=== PATIENT | female | born 1935 | race Caucasian/White ===

== ENCOUNTER → 2017-01-02 | Day surgery (SDC) | payer MEDICARE, OTHER ==
[~2017-01-02] MED LIST: 0.9 % SODIUM CHLORIDE 10 ML VIAL ONE; BUPIVACAINE MPF 0.5% 30 ML VIAL. ONE; IOHEXOL 300 MG/ML 50 ML VIAL. ONE; IV RINGERS SOLUTION,LACTATED 1,000 ML IV ONE; LABETALOL 100 MG/20 ML VIAL. IV ONE; LIDOCAINE 1% PF 30 ML VIAL. ONE; LIDOCAINE 2% PF Vial for OR 5 ML VIAL. ONE; MIDAZOLAM HCL PF 2 MG/2 ML VIAL. ONE; PROPOFOL 20 ML IV ONE
[2017-01-02 15:17] LABS: CLARITY,URINE HAZY; COLOR,URINE YELLOW
[2017-01-02 15:18] LABS: BACTERIA,URINE 0 /HPF (0-FEW); BILIRUBIN,URINE NEG (NEG); GLUCOSE,URINE NEG (NEG); NITRITE,URINE NEG (NEG); SQUAMOUS EPITHELIAL CELL,UR MANY /LPF; UROBILINOGEN,URINE 1 mg/dL (0.2 mg/dL)
== END | disposition home or self-care (01) ==
LOC: SURG 13:16
PROVIDERS: ATTEND Anesthesiology Pain Medicine
DX: M48.062 Spinal stenosis, lumbar region with neurogenic claudication (principal); M19.90 Unspecified osteoarthritis, unspecified site; K44.9 Diaphragmatic hernia without obstruction or gangrene; E07.9 Disorder of thyroid, unspecified; Z86.73 Personal history of transient ischemic attack (TIA), and cerebral infarction without residual deficits
CPT/HCPCS: 0275T; 81001; 87086; J0690; J2001; J2250; J2704; J3010; J3490; J7120; Q9967

== ENCOUNTER → 2017-06-28 | Outpatient (CLI) | payer MEDICARE ==
[~2017-06-28] MED LIST changes: -0.9 % SODIUM CHLORIDE 10 ML VIAL ONE; +ACET325T9 PO; +AMLO10TA2 PO; +ASPI81TA50 PO; -BUPIVACAINE MPF 0.5% 30 ML VIAL. ONE; +CARV6.25 PO; +CLOP75TA57 PO; +FLUT9.9S NS; +GABA-585 PO; -IOHEXOL 300 MG/ML 50 ML VIAL. ONE; -IV RINGERS SOLUTION,LACTATED 1,000 ML IV ONE; -LABETALOL 100 MG/20 ML VIAL. IV ONE; +LEVO112T4 PO; -LIDOCAINE 1% PF 30 ML VIAL. ONE; -LIDOCAINE 2% PF Vial for OR 5 ML VIAL. ONE; +LOSA1TAB25 PO; -MIDAZOLAM HCL PF 2 MG/2 ML VIAL. ONE; +OMEP20CA9 PO; +PARO20TA99 PO; -PROPOFOL 20 ML IV ONE; +RANI150T6 PO; +TIZA4TAB PO; +TRAM50TA PO; +[UNRECOGNIZED DRUG - OTHER]
[2017-06-28 12:55] LABS: BASO # 0.1 x10^3/uL (0.0-0.2); BASO % 1 % (0-3); EOS # 0.2 x10^3/uL (0.0-0.7); EOS % 4 % (0-3); HEMATOCRIT 37.5 % (36.0-47.0); HEMOGLOBIN 12.9 g/dL (12.0-15.5); LYMPH # 1.1 x10^3/uL (1.0-4.8); LYMPH % 23 % (24-48); MEAN CORPUSCULAR HEMOGLOBIN 31 pg (25-35); MEAN CORPUSCULAR HGB CONC 34 g/dL (31-37); MEAN CORPUSCULAR VOLUME 90 fL (79-100); MONO # 0.6 x10^3/uL (0.0-1.1); MONO % 12 % (0-9); NEUT # 2.7 x10^3uL (1.8-7.7); NEUT % 59 % (31-73); PLATELET COUNT 230 x10^3/uL (140-400); RED BLOOD COUNT 4.19 x10^6/uL (3.50-5.40); RED CELL DISTRIBUTION WIDTH 13.5 % (11.5-14.5); WHITE BLOOD COUNT 4.6 x10^3/uL (4.0-11.0)
[2017-06-28 13:04] LABS: BILIRUBIN,URINE NEG (NEG); CLARITY,URINE HAZY; COLOR,URINE YELLOW; GLUCOSE,URINE NEG (NEG)
[2017-06-28 13:05] LABS: BACTERIA,URINE FEW /HPF (0-FEW); NITRITE,URINE NEG (NEG); SQUAMOUS EPITHELIAL CELL,UR FEW /LPF; UROBILINOGEN,URINE 0.2 mg/dL (0.2 mg/dL)
== END | disposition home or self-care (01) ==
LOC: LAB 11:39
PROVIDERS: ATTEND Anesthesiology Pain Medicine
DX: Z01.818 Encounter for other preprocedural examination (principal); R79.89 Other specified abnormal findings of blood chemistry; Z86.73 Personal history of transient ischemic attack (TIA), and cerebral infarction without residual deficits; Z79.01 Long term (current) use of anticoagulants
CPT/HCPCS: 36415; 81001; 85025; 85610; 85730; 87641

== ENCOUNTER → 2017-07-03 | Day surgery (SDC) | payer MEDICARE ==
[~2017-07-03] MED LIST changes: +ALBUTEROL SULFATE 2.5 MG/3 ML NEBU. NEB PRN; +ATROPINE 0.5 MG/5 ML DISP.SYRIN. IV PRN; +IV RINGERS SOLUTION,LACTATED 1,000 ML BAG. IV ONE; +IV RINGERS SOLUTION,LACTATED 1,000 ML IV SCH; +LABETALOL 100 MG/20 ML VIAL. IV PRN; +MIDAZOLAM HCL PF 2 MG/2 ML VIAL. IV ONE; +MORPHINE SULFATE 2 MG/ML DISP.SYRIN. IV PRN; +NALOXONE 0.4 MG/ML VIAL. IV PRN; +ONDANSETRON PF 4 MG/2 ML VIAL. IV PRN; +PROCHLORPERAZINE 10 MG/2 ML VIAL. IV PRN; +RANI150T21 PO; -RANI150T6 PO; +ceFAZolin 2GM PREMIX 2 GM/50 ML BAG IV ONE; +diphenhydrAMINE 50 MG/ML VIAL IV PRN; +oxyCODONE/APAP 5/325 1 TAB TABLET PO PRN
[2017-07-03 09:42] VITALS: BP 162/84
== END | disposition home or self-care (01) ==
LOC: SURG 09:05
PROVIDERS: ATTEND Anesthesiology Pain Medicine
DX: M54.16 Radiculopathy, lumbar region (principal); Z53.9 Procedure and treatment not carried out, unspecified reason; I10 Essential (primary) hypertension; E89.0 Postprocedural hypothyroidism; Z87.39 Personal history of other diseases of the musculoskeletal system and connective tissue; Z86.73 Personal history of transient ischemic attack (TIA), and cerebral infarction without residual deficits; Z90.710 Acquired absence of both cervix and uterus; Z90.49 Acquired absence of other specified parts of digestive tract; Z98.890 Other specified postprocedural states; Z88.5 Allergy status to narcotic agent
CPT/HCPCS: J0690; J7120

== ENCOUNTER 2017-11-13 16:11 | Observation (INO) | payer MEDICARE ==
[~2017-11-13] VITALS: Ht 152.4 cm; Wt 84.0 kg
[~2017-11-13 16:11] MED LIST changes: +AMLO10TA2 PO; -AMLO10TA6 PO; -BUPIVACAINE MPF 0.5% 30 ML VIAL. INJ ONE; -BUPIVACAINE MPF 0.5% 30 ML VIAL. ONE; -CYCLOBENZAPRINE 10 MG TABLET. PO ONE; -DEXAMETHASONE SOD PHOS 4 MG/ML VIAL IV ONE; -DEXAMETHASONE SOD PHOS 4 MG/ML VIAL ONE; -IOHEXOL 300 MG/ML 50 ML VIAL. ONE; -IV RINGERS SOLUTION,LACTATED 1,000 ML IV SCH; -KETOROLAC 30 MG/ML VIAL. IM ONE; -KETOROLAC 30 MG/ML VIAL. IV ONE; -KETOROLAC 30 MG/ML VIAL. ONE; -LIDOCAINE 1% Multi-Dose 20 ML VIAL. ONE; -LIDOCAINE 1% PF 2 ML VIAL. ID PRN; -LIDOCAINE 1% PF 30 ML VIAL. INJ ONE; -LIDOCAINE 1% PF 30 ML VIAL. ONE; -MIDAZOLAM HCL PF 2 MG/2 ML VIAL. IV ONE; -MIDAZOLAM HCL PF 2 MG/2 ML VIAL. ONE; -ONDANSETRON PF 4 MG/2 ML VIAL. ONE; -PROPOFOL 10,000 MCG/ML (20ML) VIAL IV ONE; -PROPOFOL 20 ML IV ONE; +methylPREDNISolone 4 MG TABLET. PO SCH; -oxyCODONE/APAP 7.5/325 1 TAB TABLET PO ONE
[2017-11-13] MEDS ORDERED: oxyCODONE/APAP 7.5/325 1 TAB TABLET ONE ×2 (16:55→17:00)
[2017-11-13 17:23] VITALS: BP 129/66
[2017-11-13] MEDS ORDERED: ONDANSETRON PF 4 MG/2 ML VIAL. IV PRN (18:00)
[2017-11-13] MEDS ORDERED: methylPREDNISolone 4 MG TABLET. PO ONE (18:00)
[2017-11-13] MEDS: HYDROmorphone PF 1 MG/ML DISP.SYRIN IVP PRN (18:10)
[2017-11-13] MEDS: CARVEDILOL 6.25 MG TABLET PO SCH (20:22)
[2017-11-13] MEDS: GABAPENTIN 100 MG CAPSULE. PO SCH (20:22)
[2017-11-13] MEDS: tiZANidine 4 MG TABLET. PO PRN (20:22)
[2017-11-13] MEDS: PANTOPRAZOLE 40 MG TABLET. PO SCH (20:22)
[2017-11-13] MEDS: FAMOTIDINE 20 MG TABLET PO SCH (20:22)
[2017-11-13] MEDS: ACETAMINOPHEN 325 MG TABLET PO SCH (20:22)
[2017-11-13 22:43] VITALS: BP 112/69
--- NOTE | 2017-11-13 23:41 | HP ---
ADMIT DATE: 11/13/2017 HISTORY OF PRESENT ILLNESS: The patient is an 82-year-old female patient, who apparently has chronic low back pain that has failed multiple pain medications and multiple spinal epidural steroid injection and Dr. Lazaro, the structural steel painter attempted to place a spinal cord stimulator and apparently, the patient developed severe pain in her left groin and then going down to slightly below her left knee that comes in waves. She has had an x-ray of her left hip joint, which showed that there was no evidence of acute fracture or dislocation, mild left hip joint space narrowing with small associated osteophytes. She has had a CT scan of the thoracic and lumbar spine without contrast after she developed back and hip pain status post after the stimulator placement and subsequent removal, and it showed that the thoracic spine images demonstrate no recent fracture. There is extensive marginal spurring with anterior bony bridging at several levels in the lower thoracic spine. There are moderate degenerative changes involving scattered facet joints bilaterally. The posterior disk margins are not clearly seen. No high grade central spinal stenosis is evident. There are gas collections within the posterior aspect of the mid to lower thoracic spinal canal, apparently led to recent spinal stimulator placement and subsequent removal. There is mild atelectasis posteriorly in both lung bases, and moderate-sized hiatal hernia is noted. The lumbar images demonstrate moderate multilevel degenerative changes with spinal stenosis and foraminal narrowing at multiple levels as fully described on the study earlier during the day. No new lumbar abnormalities detected. Because of the continued pain that comes into waves, a decision was made to admit her to [facility] to control the pain and to include Medrol Dosepak as well as Neurontin 100 mg twice a day as per Dr. Lazaro's recommendation. We will obviously repeat her CT scan if necessary if she continued to complain of pain. Ultimately, she may require MRI and a neurosurgical consult if the pain continues to worsen. PAST MEDICAL HISTORY: Significant for left middle cerebral artery territory infarct, right-sided hemiplegia with resolution of her symptoms. Apparently, she has also left carotid stenosis, status post stent deployment, hypertension, type 2 diabetes, hypothyroidism, generalized osteoarthritis, scoliosis and L4-L5 spinal stenosis. She is also known to have senile macular degeneration. She is totally blind in one eye and the vision is poor in the other, she is legally blind. PAST SURGICAL HISTORY: Significant for thyroidectomy, total abdominal hysterectomy, bilateral salpingo-oophorectomy, cholecystectomy, unilateral cataract removal, vaginal mesh placement, multiple spinal epidural steroid injections and colonoscopy. ALLERGIES: She is allergic to CODEINE. MEDICATIONS: She is currently on the following medications: She is on tizanidine 2 mg 1-2 tablets at bedtime. She is on ranitidine 150 mg twice a day. She is on Protonix 20 mg daily, Systane Ultra 1 drop to both eyes as needed, levothyroxine 112 mcg daily, Ocuvite 1 tablet p.o. b.i.d., omeprazole 20 mg daily, Coreg 6.25 mg twice a day, Tylenol 650 mg 3 times a day. She was on aspirin 81 mg once a day, Flonase 2 sprays to each nostril once a day, Plavix 75 mg daily, amlodipine 10 mg daily, losartan 100 mg daily, vitamin D 50,000 international units twice a week, tramadol 50 mg every 8 hours and estrogen and testosterone suppositories every other night. FAMILY HISTORY: She has 1 sister, at the age of 74 because of advanced alcoholic liver disease and alcohol-induced Alzheimer disease. Her father in his 70s of Alzheimer disease. Mother in her 40s, the cause of is unknown. SOCIAL HISTORY: She is and lives with her . She quit smoking 50 years ago. She used to smoke 2 packs a day. Her daughter lives nearby. 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 REVIEW OF SYSTEMS: The patient has senile macular degeneration and she is legally blind. She denied any earache, tinnitus or sensorineural deafness. Denied any nosebleeds, stuffy nose or postnasal drip. Denied any sore throat, sore tongue, toothache, hoarseness of voice or difficulty swallowing. Denied any nausea, vomiting, diarrhea or constipation. Denied any hematemesis, melena or hematochezia. Denied any dysuria, frequency or hematuria. Denied any chest pain, shortness of breath, orthopnea, or paroxysmal nocturnal dyspnea. Denied any cough, phlegm or hemoptysis. Denied any chills, rigors or fever. Her main complaint is new-onset of pain that starts in the left groin extending to the left kneecap and slightly below it. It comes into waves. PHYSICAL EXAMINATION: GENERAL: On examining her, she looked well and was clearly in no apparent respiratory distress. She was pale, but no jaundice, cyanosis, or thyromegaly. No jugular venous distension. No limb edema. VITAL SIGNS: Her heart rate was 76, blood pressure was 129/66, temperature was 98.4, oxygen saturation was 93% on room air and respiratory rate was 20. HEENT: Showed she is normocephalic, atraumatic. NECK: Supple. HEART: Showed normal first and second heart sounds with no gallop, rub or murmur. CHEST: Clear to auscultation. No crepitation or rhonchi. ABDOMEN: Distended, soft, and nontender. No guarding or rigidity. No organomegaly. Hernial orifice intact. Bowel sounds normal. NEUROLOGIC: She was legally blind, but otherwise all other cranial nerves were intact. EXTREMITIES: She moves all extremities without difficulty. She has severe pain that is episodic that starts in her left groin and extends to the left kneecap. LABORATORY DATA: Her lab work done this morning showed a white cell count of 5000, hemoglobin 12, hematocrit 35, MCV 88 and platelet count of 248,000. Her prothrombin time was 10, INR of 1, and a PTT was 24. Urinalysis, she has no chemistry done. Her CT scan of the thoracic and lumbar spine showed that the patient has moderate multilevel hypertrophic degenerative changes in the thoracic spine without evidence of significant thoracic spinal stenosis. MRI scanning may be useful for further evaluation if clinically indicated due to its higher sensitivity, small gas collection in the posterior aspect of the mid to lower thoracic spinal canal due to recent spinal stimulator intervention, moderate multilevel degenerative changes in the lumbar spine as fully described. ASSESSMENT AND PLAN: In summary, this is an 82-year-old female patient with chronic back pain, who has had a trial of a stimulator placement and subsequent removal. She unfortunately developed severe pain that started in her left groin and extends to the left kneecap. She was admitted for pain management. We will start her on hydromorphone 0.5 mg IV every 3 hours as well as Medrol Dosepak and Neurontin 100 mg twice a day. We will hold her Plavix and aspirin for now. If her pain worsens, she will eventually need an MRI of her lumbar spine and perhaps also a neurosurgical consult. RASHAUN ELIZABETH MD DR: Casimiro JOB#: [id number] / [id number]
[2017-11-14] MEDS: HYDROmorphone PF 1 MG/ML DISP.SYRIN IVP PRN (02:49)
[2017-11-14 05:16] VITALS: BP 127/68
[2017-11-14] MEDS ORDERED: LEVOTHYROXINE 112 MCG TABLET PO SCH (06:00)
[2017-11-14 06:07] LABS: HEMATOCRIT 31.9 % (36.0-47.0); HEMOGLOBIN 10.8 g/dL (12.0-15.5); RED BLOOD COUNT 3.56 x10^6/uL (3.50-5.40); RED CELL DISTRIBUTION WIDTH 13.5 % (11.5-14.5); WHITE BLOOD COUNT 8.5 x10^3/uL (4.0-11.0)
[2017-11-14 06:21] LABS: ALBUMIN 3.3 g/dL (3.4-5.0); CALCIUM 8.3 mg/dL (8.5-10.1); CREATININE 2.2 mg/dL (0.6-1.0); GFR 21.3; POTASSIUM 4.8 mmol/L (3.5-5.1); TOTAL BILIRUBIN 0.5 mg/dL (0.2-1.0); TOTAL PROTEIN 6.6 g/dL (6.4-8.2)
[2017-11-14] MEDS: CARVEDILOL 6.25 MG TABLET PO SCH (08:30)
[2017-11-14] MEDS: FAMOTIDINE 20 MG TABLET PO SCH (08:30)
[2017-11-14] MEDS: methylPREDNISolone 4 MG TABLET. PO SCH ×2 (08:30→13:10)
[2017-11-14] MEDS: PANTOPRAZOLE 40 MG TABLET. PO SCH (08:30)
[2017-11-14] MEDS: ACETAMINOPHEN 325 MG TABLET PO SCH ×2 (08:31→13:09)
[2017-11-14] MEDS: tiZANidine 4 MG TABLET. PO PRN (08:31)
[2017-11-14] MEDS: GABAPENTIN 100 MG CAPSULE. PO SCH (08:35)
[2017-11-14] MEDS ORDERED: oxyCODONE/APAP 5/325 1 TAB TABLET PO PRN ×3 (08:45→09:00)
[2017-11-14] MEDS ORDERED: LOSARTAN 50 MG TABLET. PO SCH (09:00)
[2017-11-14] MEDS ORDERED: PARoxetine 20 MG TABLET PO SCH (09:00)
[2017-11-14] MEDS ORDERED: amLODIPine BESYLATE 10 MG TABLET PO SCH (09:00)
[2017-11-14] MEDS ORDERED: hydroCHLOROthiazide 12.5 MG CAPSULE PO SCH (09:00)
[2017-11-14] MEDS ORDERED: FLUTICASONE 50MCG/NASAL SPRAY 16GM BOTTLE. NS SCH ×2 (09:00→21:00)
[2017-11-14 10:39] VITALS: BP 94/53
[2017-11-14 14:54] VITALS: BP 105/56
[2017-11-14] MEDS ORDERED: methylPREDNISolone 4 MG TABLET. PO SCH (21:00)
[2017-11-15] MEDS ORDERED: methylPREDNISolone 4 MG TABLET. PO SCH (09:00)
[2017-11-16] MEDS ORDERED: methylPREDNISolone 4 MG TABLET. PO SCH (09:00)
[2017-11-17] MEDS ORDERED: methylPREDNISolone 4 MG TABLET. PO SCH (09:00)
[2017-11-18] MEDS ORDERED: methylPREDNISolone 4 MG TABLET. PO SCH (09:00)
== END 2017-11-14 16:35 | disposition home or self-care (01) ==
LOC: 1 SOUTH 16:11
PROVIDERS: ADMIT Internal Medicine; ATTEND Internal Medicine
DX: M54.5 Low back pain (principal); I65.22 Occlusion and stenosis of left carotid artery; I10 Essential (primary) hypertension; E11.9 Type 2 diabetes mellitus without complications; E03.9 Hypothyroidism, unspecified; M19.90 Unspecified osteoarthritis, unspecified site; G89.29 Other chronic pain; Z87.891 Personal history of nicotine dependence; Z79.899 Other long term (current) drug therapy; Z82.0 Family history of epilepsy and other diseases of the nervous system; Z86.73 Personal history of transient ischemic attack (TIA), and cerebral infarction without residual deficits; Z90.710 Acquired absence of both cervix and uterus
CPT/HCPCS: 36415; 80053; 85027; 96374; 96375; 96376; 97162; 97166; G0378; G0379; G8978; G8979; G8987; G8988; J1170; J2405; J7509

== ENCOUNTER → 2017-11-13 | Day surgery (SDC) | payer MEDICARE ==
[~2017-11-13] MED LIST changes: -ALBUTEROL SULFATE 2.5 MG/3 ML NEBU. NEB PRN; -AMLO10TA2 PO; +AMLO10TA6 PO; -ATROPINE 0.5 MG/5 ML DISP.SYRIN. IV PRN; +BUPIVACAINE MPF 0.5% 30 ML VIAL. INJ ONE; +BUPIVACAINE MPF 0.5% 30 ML VIAL. ONE; +CYCLOBENZAPRINE 10 MG TABLET. PO ONE; +DEXAMETHASONE SOD PHOS 4 MG/ML VIAL IV ONE; +DEXAMETHASONE SOD PHOS 4 MG/ML VIAL ONE; +IOHEXOL 300 MG/ML 50 ML VIAL. ONE; -IV RINGERS SOLUTION,LACTATED 1,000 ML BAG. IV ONE; +KETOROLAC 30 MG/ML VIAL. IM ONE; +KETOROLAC 30 MG/ML VIAL. IV ONE; +KETOROLAC 30 MG/ML VIAL. ONE; -LABETALOL 100 MG/20 ML VIAL. IV PRN; +LIDOCAINE 1% Multi-Dose 20 ML VIAL. ONE; +LIDOCAINE 1% PF 2 ML VIAL. ID PRN; +LIDOCAINE 1% PF 30 ML VIAL. INJ ONE; +LIDOCAINE 1% PF 30 ML VIAL. ONE; +MIDAZOLAM HCL PF 2 MG/2 ML VIAL. ONE; -MORPHINE SULFATE 2 MG/ML DISP.SYRIN. IV PRN; -NALOXONE 0.4 MG/ML VIAL. IV PRN; -ONDANSETRON PF 4 MG/2 ML VIAL. IV PRN; +ONDANSETRON PF 4 MG/2 ML VIAL. ONE; -PROCHLORPERAZINE 10 MG/2 ML VIAL. IV PRN; +PROPOFOL 10,000 MCG/ML (20ML) VIAL IV ONE; +PROPOFOL 20 ML IV ONE; -ceFAZolin 2GM PREMIX 2 GM/50 ML BAG IV ONE; -diphenhydrAMINE 50 MG/ML VIAL IV PRN; -oxyCODONE/APAP 5/325 1 TAB TABLET PO PRN; +oxyCODONE/APAP 7.5/325 1 TAB TABLET PO ONE
[2017-11-13 10:41] LABS: BASO # 0.1 x10^3/uL (0.0-0.2); BASO % 1 % (0-3); EOS # 0.3 x10^3/uL (0.0-0.7); EOS % 6 % (0-3); HEMATOCRIT 35.3 % (36.0-47.0); HEMOGLOBIN 12.1 g/dL (12.0-15.5); LYMPH # 1.1 x10^3/uL (1.0-4.8); LYMPH % 22 % (24-48); MEAN CORPUSCULAR HEMOGLOBIN 30 pg (25-35); MEAN CORPUSCULAR HGB CONC 34 g/dL (31-37); MEAN CORPUSCULAR VOLUME 88 fL (79-100); MONO # 0.5 x10^3/uL (0.0-1.1); MONO % 11 % (0-9); NEUT # 3.1 x10^3uL (1.8-7.7); NEUT % 61 % (31-73); PLATELET COUNT 246 x10^3/uL (140-400); RED BLOOD COUNT 4.03 x10^6/uL (3.50-5.40); RED CELL DISTRIBUTION WIDTH 13.7 % (11.5-14.5)
--- NOTE | 2017-11-13 14:14 | RAD ---
EXAM: 2 views left hip DATE: 11/13/2017 1:47 PM INDICATION: BACK AND HIP PAIN, POST STIMULATOR TRIAL PLACEMENT COMPARISON: No Prior FINDINGS/ IMPRESSION: No evidence of acute fracture or dislocation. Mild left hip joint space narrowing with small associated osteophytes. Electronically signed by: Marc Cohen MD (11/13/2017 2:10 PM) [id number]
--- NOTE | 2017-11-13 15:17 | RAD ---
CT of the lumbar spine without contrast, 11/13/2017: HISTORY: Back and hip pain following stimulator placement Noncontrast scans were obtained with multiplanar reconstructions produced. Spinal stimulator leads enter the spinal canal between the lamina at T11-12 just to the left of midline. They extend superiorly in the posterior aspect of the thoracic spinal canal. Their tips are not visible on this study. There is a mild superior endplate deformity at L2. No definite acute fracture line is seen. This is likely old. At L1-2 there is a vacuum disc phenomena with moderate anterior and posterior marginal spurring. There are mild degenerative changes involving the facet joints bilaterally. The combination of findings is causing borderline narrowing of the central spinal canal and mild to moderate right foraminal encroachment. At L2-3 there is a vacuum phenomena with moderate broad-based posterior disc bulging and spurring. There is mild posterior ligamentous thickening related to facet joint arthropathy. There is moderate associated central spinal stenosis and mild inferior foraminal encroachment due to the spurring. At L3-4 there is moderate disc space narrowing with a vacuum disc phenomena and moderate marginal spurring. There are mild degenerative changes involving the facet joints with posterior ligamentous thickening. The combination of findings is causing moderate central spinal stenosis with mild to moderate foraminal narrowing, more so on the left. At L4-5 there is severe disc space narrowing with a vacuum disc phenomena and marginal spurring. There are extensive hypertrophic degenerative changes involving the facet joints bilaterally. There is broad-based posterior disc bulge in conjunction with the spurring. The combination of findings is causing moderate central spinal stenosis as well as moderate bilateral foraminal encroachment. At L5-S1 there is also moderate degenerative disc disease with a vacuum disc phenomena and moderate marginal spurring. There are moderate degenerative changes involving the facet joints. The combination of findings is causing mild central spinal stenosis, mild left foraminal narrowing and moderate right foraminal narrowing. There is moderate calcific plaquing and tortuosity of the abdominal aorta. There is slight dilatation of the infrarenal abdominal aorta. IMPRESSION: 1. Moderate multilevel hypertrophic degenerative change in the lumbar spine with mild to moderate central spinal and foraminal stenosis at multiple levels as described above. 2. Mild superior endplate fracture at L2 which is probably old. 3. Spinal stimulator leads extending into the lower thoracic spinal canal. PQRS Compliance Statement: One or more of the following individualized dose reduction techniques were utilized for this examination: 1. Automated exposure control 2. Adjustment of the mA and/or kV according to patient size 3. Use of iterative reconstruction technique Electronically signed by: Akira Kraus MD (11/13/2017 3:14 PM) [facility]
[2017-11-13 16:40] VITALS: BP 128/71
--- NOTE | 2017-11-13 16:42 | RAD ---
CT of the thoracic or lumbar spine without contrast, 11/13/2017, 4:00 PM: HISTORY: Back and hip pain status post stimulator placement and subsequent removal Noncontrast scans were obtained with multiplanar reconstructions produced. The thoracic spine images demonstrate no recent fracture. There is extensive marginal spurring with anterior bony bridging at several levels in the lower thoracic spine. There are moderate degenerative changes involving scattered facet joints bilaterally. The posterior disc margins are not clearly seen. No high-grade central spinal stenosis is evident. There are gas collections within the posterior aspect of the mid to lower thoracic spinal canal apparently related to the recent spinal stimulator placement and subsequent removal. There is mild atelectasis posteriorly in both lung bases. A moderate sized hiatal hernia is noted. The lumbar images demonstrate moderate multilevel degenerative change with spinal stenosis and foraminal narrowing at multiple levels as fully described on the study of earlier in the day. No new lumbar abnormality is detected. IMPRESSION: 1. Moderate multilevel hypertrophic degenerative change in the thoracic spine without evidence of significant thoracic spinal stenosis. MR scanning may be useful for further evaluation if clinically indicated, due to its higher sensitivity. 2. Small gas collections in the posterior aspect of the mid and lower thoracic spinal canal due to the recent spinal stimulator intervention. 3. Moderate multilevel degenerative change in the lumbar spine, as fully described on the CT study of earlier in the day. PQRS Compliance Statement: One or more of the following individualized dose reduction techniques were utilized for this examination: 1. Automated exposure control 2. Adjustment of the mA and/or kV according to patient size 3. Use of iterative reconstruction technique Electronically signed by: Akira Kraus MD (11/13/2017 4:39 PM) [facility]
== END | disposition home or self-care (01) ==
LOC: SURG 09:58
PROVIDERS: ATTEND Anesthesiology Pain Medicine
DX: M54.16 Radiculopathy, lumbar region (principal); I10 Essential (primary) hypertension; G89.29 Other chronic pain; K21.9 Gastro-esophageal reflux disease without esophagitis; M19.90 Unspecified osteoarthritis, unspecified site; E89.0 Postprocedural hypothyroidism; Z90.710 Acquired absence of both cervix and uterus; Z90.49 Acquired absence of other specified parts of digestive tract; Z88.5 Allergy status to narcotic agent; Z79.01 Long term (current) use of anticoagulants; Z79.899 Other long term (current) drug therapy
CPT/HCPCS: 36415; 63650; 72128; 72131; 73502; 85025; 85610; C1897; J0690; J1100; J1885; J2001; J2250; J2405; J2704; J3010; J3490; J7120; Q9967

== ENCOUNTER → 2018-05-14 | Outpatient (CLI) | payer MEDICARE ==
[~2018-05-14] MED LIST changes: -AMLO10TA2 PO; +AMLO10TA8 PO; +BUPIVACAINE MPF 0.5% 30 ML VIAL. ONE; +IOHEXOL 300 MG/ML 50 ML VIAL. ONE; +LIDOCAINE 1% PF 30 ML VIAL. ONE; -methylPREDNISolone 4 MG TABLET. PO SCH; +methylPREDNISolone ACETATE 80 MG/ML VIAL. ONE
== END | disposition home or self-care (01) ==
LOC: SURG 08:34
PROVIDERS: ATTEND Anesthesiology Pain Medicine
DX: M47.816 Spondylosis without myelopathy or radiculopathy, lumbar region (principal); M48.061 Spinal stenosis, lumbar region without neurogenic claudication; I10 Essential (primary) hypertension; E03.9 Hypothyroidism, unspecified; E78.5 Hyperlipidemia, unspecified; K21.9 Gastro-esophageal reflux disease without esophagitis; I25.10 Atherosclerotic heart disease of native coronary artery without angina pectoris; M19.90 Unspecified osteoarthritis, unspecified site; Z86.73 Personal history of transient ischemic attack (TIA), and cerebral infarction without residual deficits; Z82.49 Family history of ischemic heart disease and other diseases of the circulatory system; Z79.82 Long term (current) use of aspirin; Z79.899 Other long term (current) drug therapy; Z88.5 Allergy status to narcotic agent; Z88.8 Allergy status to other drugs, medicaments and biological substances; Z95.5 Presence of coronary angioplasty implant and graft
CPT/HCPCS: 64493; 64494; J1040; J2001; J3490; Q9967

== ENCOUNTER → 2019-11-18 | Outpatient (CLI) | payer MEDICARE ==
[~2019-11-18] MED LIST changes: -BUPIVACAINE MPF 0.5% 30 ML VIAL. ONE; -IOHEXOL 300 MG/ML 50 ML VIAL. ONE; -LIDOCAINE 1% PF 30 ML VIAL. ONE; +OMEP20CA16 PO; -OMEP20CA9 PO; +RANI-376 PO; -RANI150T21 PO; -TIZA4TAB PO; +TIZA4TAB2 PO; -methylPREDNISolone ACETATE 80 MG/ML VIAL. ONE
--- NOTE | 2019-11-23 11:59 | RAD ---
DATE: 11/18/2019 2:00 PM EXAM: DIGITAL SCREEN BILAT W/CAD HISTORY: Screening COMPARISON: 02/24/2016, 07/19/2017, 09/17/2018 Bilateral full field craniocaudal and mediolateral oblique images were obtained using digital technique. This study was interpreted with the benefit of Computerized Aided Detection (CAD). FINDINGS: Breast Density: HETERO The breast parenchyma Is heterogeneously dense, which could reduce sensitivity of mammography. Breast parenchyma level C No suspicious masses, microcalcifications or architectural distortion is present to suggest malignancy in either breast. The visualized axillae are unremarkable. IMPRESSION: No mammographic evidence of malignancy. BI-RADS CATEGORY: 1 NEGATIVE RECOMMENDED FOLLOW-UP: 12M 12 MONTH FOLLOW-UP Annual screening mammography is recommended, unless clinically indicated sooner based on symptoms or change in physical exam. PQRS compliance statement: Patient information was entered into a reminder system with a target due date for the next mammogram. Mammography is a sensitive method for finding small breast cancers, but it does not detect them all and is not a substitute for careful clinical examination. A negative mammogram does not negate a clinically suspicious finding and should not result in delay in biopsying a clinically suspicious abnormality. "Our facility is accredited by the [employer] Mammography Program."
== END | disposition home or self-care (01) ==
LOC: MAMMO 14:01
PROVIDERS: ATTEND Family Medicine
DX: Z12.31 Encounter for screening mammogram for malignant neoplasm of breast (principal)
CPT/HCPCS: 77067

== ENCOUNTER → 2020-07-01 | Outpatient (CLI) | payer MEDICARE ==
[~2020-07-01] MED LIST changes: +AMLO-187 PO; -AMLO10TA8 PO
--- NOTE | 2020-07-01 17:45 | RAD ---
EXAM: XR FOREARM_LEFT 2 VIEWS, XR HAND_LEFT 3 VIEWS, XR HUMERUS_LT 2 VIEWS 07/01/2020 10:45 AM CLINICAL INDICATION: Fell yesterday, pain COMPARISON: None TECHNIQUE: 2 views of the left humerus, 2 views of the left forearm, 3 views of the left hand FINDINGS: Humerus: No acute fracture. Alignment is normal. There is probable calcific tendinitis along the rota tor cuff. Left forearm: There is a radial neck fracture with slight impaction and angulation. No intra-articula r extension. No other fracture or malalignment. Left hand: No acute fracture or malalignment. There is severe degenerative joint disease of the first CMC joint. Moderate degenerative joint disease of the third MTP joint. Chondrocalcinosis is seen at the wrist. IMPRESSION: 1. Acute left radial neck fracture 2. No acute fracture of the left humerus or hand. Electronically signed by: Jenny Aburto MD (07/01/2020 5:43 PM) [id number]
== END ==
LOC: DXRAD 10:44
PROVIDERS: ATTEND Family Medicine
DX: S52.132A Displaced fracture of neck of left radius, initial encounter for closed fracture (principal); M18.12 Unilateral primary osteoarthritis of first carpometacarpal joint, left hand; M11.232 Other chondrocalcinosis, left wrist; M19.072 Primary osteoarthritis, left ankle and foot; W19.XXXA Unspecified fall, initial encounter; Y93.89 Activity, other specified; Y92.89 Other specified places as the place of occurrence of the external cause; Y99.8 Other external cause status
CPT/HCPCS: 73060; 73090; 73130

== ENCOUNTER → 2020-07-11 | Outpatient (CLI) | payer MEDICARE ==
--- NOTE | 2020-07-11 17:32 | RAD ---
EXAM: Right lower extremity venous Doppler sonogram. HISTORY: Pain and swelling. TECHNIQUE: Flor scale and color Doppler sonographic evaluation of the right lower extremity veins wit h spectral waveform analysis was performed. FINDINGS: There is normal color flow, normal compressibility and there are normal spectral waveforms in the common femoral, superficial femoral, popliteal, posterior tibial and greater saphenous veins. There is a complex fluid collection measuring 5.8 x 3.9 x 1.6 cm within the inferior medial right gómez f. IMPRESSION: 1. No Doppler evidence of lower extremity deep venous thrombosis. 2. 5.8 cm complex fluid collection within the inferior medial right calf. This may be a soft tissue h ematoma. Given reported erythema in this location, the differential also includes an infected fluid c ollection/abscess. Correlate with physical exam findings. Electronically signed by: Marisa Velarde MD (07/11/2020 5:30 PM) [id number]
== END ==
LOC: US 16:49
PROVIDERS: ATTEND Family Medicine
DX: M79.89 Other specified soft tissue disorders (principal)
CPT/HCPCS: 93971

== ENCOUNTER 2020-11-16 13:27 | Emergency (ER) | payer MEDICARE ==
[~2020-11-16] VITALS: Ht 157.5 cm; Wt 77.4 kg
[2020-11-16] MEDS ORDERED: NEOMY/BACITR/POLYMYXIN OINT PACKET. TP ONE (13:45)
[2020-11-16] MEDS ORDERED: LIDOCAINE 2%/EPI 1:100,000 20 ML VIAL. IJ ONE (13:45)
[2020-11-16 13:51] VITALS: BP 124/55
--- NOTE | 2020-11-16 14:11 | RAD ---
XR KNEE 3 VIEWS_RT Clinical indications: Reason: pain s/p fall, laceration Findings: No acute fracture or dislocation or osteolytic process is evident. No right knee joint effusion is seen. There is degenerative chondrocalcinosis of the medial and later al menisci. Mild degenerative spurring of the medial tibial femoral joint compartment is seen. 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 Prepatellar soft tissue swelling and laceration is seen . No radiopaque foreign body is evident here. IMPRESSION: No acute osseous abnormality is evident. Electronically signed by: Robbi Garza MD (11/16/2020 2:09 PM) [id number]
[2020-11-16] MEDS ORDERED: DIPH,PERTUSS(ACELL),TET VAC/PF 0.5 ML SYRINGE. VAX IM ONE (14:15)
--- NOTE | 2020-11-16 14:23 | PHYS DOC ---
Past History Past Surgical History: No Surgical History General Adult EDM: Chief Complaint: LACERATION/AVULSION HPI: HPI: Patient is a [age] year old [sex] who presents with [] Review of Systems: Review of Systems: Constitutional: Denies fever or chills Eyes: Denies redness or eye pain HENT: Denies nasal congestion or sore throat Respiratory: Denies cough or shortness of breath Cardiovascular: Denies chest pain or palpitations GI: Denies abdominal pain, nausea, or vomiting : Denies dysuria or hematuria Musculoskeletal: Denies back pain or joint pain Integument: Denies rash or skin lesions Neurologic: Denies headache, focal weakness or sensory changes Complete systems were reviewed and found to be within normal limits, except as documented in this note. Current Medications: Current Meds: Current Medications Medications (Trade) Dose Ordered Sig/Sandra Start Time Stop Time Status Last Admin Dose Admin Diphtheria/ Pertussis/Tetanus Vacc (ADACEL TDap SYRINGE) 0.5 ml ONCE ONCE 11/16/20 14:15 11/16/20 14:16 DC Lidocaine/ Epinephrine (Xylocaine 2%-Epi 1:100,000) 20 ml 1X ONCE 11/16/20 13:45 11/16/20 13:52 DC Neomycin/ Polymyxin/ Bacitracin (Triple Antibiotic Ointment) 1 pkt 1X ONCE 11/16/20 13:45 11/16/20 13:52 DC Allergies: Allergies: Allergies Coded Allergies Type Severity Reaction Last Updated Verified codeine Allergy Unknown 11/13/17 Yes Physical Exam: PE: Constitutional: Well developed, well nourished, no acute distress, non-toxic appearance HENT: Normocephalic, atraumatic Eyes: PERRL, EOMI, conjunctiva normal, no discharge Neck: Normal range of motion, no tenderness, supple Lungs & Thorax: No respiratory distress, equal chest rise and fall Abdomen: Soft, no tenderness Skin: Warm, dry, no erythema, no rash Back: No tenderness, no CVA tenderness Extremities: No tenderness, ROM intact, no edema Neurologic: Alert and oriented X 3, normal motor function, normal sensory function, no focal deficits noted Psychologic: Affect normal, judgment normal Current Patient Data: Vital Signs: Vital Signs Date Time Temp Pulse Resp B/P (MAP) Pulse Ox O2 Delivery O2 Flow Rate FiO2 11/16/20 13:51 96.1 50 24 124/55 95 Room Air EKG: EKG: [] Radiology/Procedures: Radiology/Procedures: PROCEDURE: KNEE RIGHT 3V XR KNEE 3 VIEWS_RT Clinical indications: Reason: pain s/p fall, laceration Findings: No acute fracture or dislocation or osteolytic process is evident. No right knee joint effusion is seen. There is degenerative chondrocalcinosis of the medial and lateral menisci. Mild degenerative spurring of the medial tibial femoral joint compartment is seen. Calcified atheromatous arterial disease is evident. Prepatellar soft tissue swelling and laceration is seen. No radiopaque foreign body is evident here. IMPRESSION: No acute osseous abnormality is evident. Electronically signed by: Robbi Garza MD (11/16/2020 2:09 PM) [id number] Heart Score: C/O Chest Pain: N/A Course & Med Decision Making: Course & Med Decision Making Pertinent Labs and Imaging studies reviewed. (See chart for details) Patient stable for discharge with outpatient follow-up with PCP. Discussed findings and plan with patient, who acknowledges understanding and agreement. Dragon Disclaimer: Dragon Disclaimer: This electronic medical record was generated, in whole or in part, using a voice recognition dictation system. Splinting Splinting : Location: Right knee Pre-Made Type: KEVIN bandage Pre-Proc Neuro Vasc Exam: normal Post-Proc Neuro Vasc Exam: normal, unchanged from pre-exam Laceration/Wound Repair Progress Verbal consent obtained. Time out performed. Hand hygiene utilized. Wound cleaned with ChloraPrep. Anesthesia obtained via a 25-gauge hypodermic needle with (15) mL's of lidocaine 2% with epinephrine. Copious irrigation performed. Wound well approximated with 4-0 Nylon sutures x 9 (horizontal mattress x 3 and simple interrupted x 6). Patient tolerated procedure well and without difficulty. Empiric antibiotic ointment applied prior to sterile dressing. KEVIN bandage applied for protection of sutures. Departure Departure: Impression: Primary Impression: Laceration of right knee Qualified Codes: S81.011A - Laceration without foreign body, right knee, initial encounter Disposition: HOME / SELF CARE / HOMELESS Condition: STABLE Referrals: SERENITY CORTEZ (PCP) Patient Instructions: Knee Wraps (Elastic Bandage) and RICE, Laceration Care, Adult, [id number] Additional Instructions: Do not soak your wound. You may shower. Clean wound daily with soap and water. Change dressing 2 times daily. Use over the counter antibiotic ointment with each dressing change. Wear Kevin bandage to protect sutures. Sutures need to be removed in 10-14 days. Present to your family doctor or local urgent care for removal. You may also present to the ED but it will be an additional visit/charge. After suture removal you may use Vitamin E ointment to soften the wound and prevent scarring. Use [id number] or previously prescribed pain medications as needed DEBORAH BAUMAN DO Nov 16, 2020 14:23
== END 2020-11-16 15:21 | disposition home or self-care (01) ==
LOC: ER 13:27
DX: S81.011A Laceration without foreign body, right knee, initial encounter (principal); W18.39XA Other fall on same level, initial encounter; Y93.89 Activity, other specified; Y92.89 Other specified places as the place of occurrence of the external cause; Y99.8 Other external cause status
CPT/HCPCS: 12001; 73562; 99283

== ENCOUNTER → 2020-12-01 | Outpatient (CLI) | payer MEDICARE ==
[2020-11-16 13:51] VITALS: BP 124/55
--- NOTE | 2020-12-01 17:49 | RAD ---
DATE: 12/01/2020 EXAM: DIGITAL SCREEN BILAT W/CAD HISTORY: Screening COMPARISON: Multiple prior exams dating back 03/23/2014 This study was interpreted with the benefit of Computerized Aided Detection (CAD). Breast Density: HETERO The breast parenchyma is heterogenously dense, which could reduce sensitivity of mammography. Breast parenchyma level C. FINDINGS: Scattered bilateral benign calcific lesions are unchanged. No mass, suspicious calcification, or architectural distortion in either breast. IMPRESSION: No evidence of malignancy. BI-RADS CATEGORY: 2 BENIGN FINDING(S) RECOMMENDED FOLLOW-UP: 12M 12 MONTH FOLLOW-UP PQRS compliance statement: Patient information was entered into a reminder system with a target due date for the next mammogram. Mammography is a sensitive method for finding small breast cancers, but it does not detect them all and is not a substitute for careful clinical examination. A negative mammogram does not negate a clinically suspicious finding and should not result in delay in biopsying a clinically suspicious abnormality. "Our facility is accredited by the [employer] Mammography Program."
== END ==
LOC: MAMMO 14:41
PROVIDERS: ATTEND Obstetrics & Gynecology
DX: Z12.31 Encounter for screening mammogram for malignant neoplasm of breast (principal)
CPT/HCPCS: 77067